=== PATIENT | female | born 1985 | race Caucasian/White ===

== ENCOUNTER 2022-06-11 18:45 | Emergency (ER) | payer SELFPAY ==
[2022-06-12] MEDS ORDERED: OLANZapine 10 MG Vial IM ONE (00:14)
== END 2022-06-12 07:27 | disposition other institution (70) ==
LOC: JP.ED 18:45
DX: F30.9 Manic episode, unspecified (principal)
CPT/HCPCS: 36415; 80048; 80305; 81025; 84443; 85025; 96372; 99285; J3490